=== PATIENT | female | born 1970 | race Hispanic/Latino ===

== ENCOUNTER 2017-08-28 13:24 | Outpatient (CLI) | payer BC ==
--- NOTE | 2017-08-28 13:55 | XRay Report ---
CHEST TWO VIEWS: 08/28/17 13:24:00 CLINICAL: URI and cough. Recent flu. COMPARISON: None FINDINGS: Normal heart and pulmonary vasculature. The lungs are normally expanded and clear. The bones and soft tissues are normal. IMPRESSION: Normal chest.No pneumonia.
== END 2017-08-28 13:25 | disposition home or self-care (01) ==
LOC: XRAY 13:24
DX: R05 Cough (principal)
CPT/HCPCS: 71046

== ENCOUNTER 2018-04-16 08:24 | Outpatient (CLI) | payer BC ==
--- NOTE | 2018-04-16 14:32 | Mammography Report ---
BILATERAL DIGITAL SCREENING MAMMOGRAM with CAD: 04/16/18 08:24:00 CLINICAL: Routine screening. COMPARISON:10/17/15 FINDINGS: The breasts are heterogeneously dense, which may obscure small masses.However, there has been some fatty involution since the last exam. No mass, architectural distortion or suspicious calcifications. IMPRESSION: No mammographic evidence of malignancy. BI-RADS CATEGORY: 1 - - Negative RECOMMENDATION: Routine mammographic screening in one year. COMMENT: Patient follow-up letters are generated by our [employer] application.
== END 2018-04-16 08:25 | disposition home or self-care (01) ==
LOC: MAMMO 08:24
PROVIDERS: ATTEND Obstetrics & Gynecology
DX: Z12.31 Encounter for screening mammogram for malignant neoplasm of breast (principal); E66.9 Obesity, unspecified; K21.9 Gastro-esophageal reflux disease without esophagitis; Z87.891 Personal history of nicotine dependence; Z90.89 Acquired absence of other organs; Z90.49 Acquired absence of other specified parts of digestive tract
CPT/HCPCS: 77067

== ENCOUNTER 2020-07-20 14:41 | Outpatient (CLI) | payer BC | END 2020-07-20 14:42 | disposition home or self-care (01) | LOC: LABHHL 14:41 | PROVIDERS: ATTEND Surgery | DX: N63.11 Unspecified lump in the right breast, upper outer quadrant (principal) | CPT/HCPCS: 88305 ==